=== PATIENT | female | born 1955 | race Caucasian/White ===

== ENCOUNTER 2019-01-19 17:39 | Emergency (ER) | payer BC ==
[2019-01-19] MEDS: ONDANSETRON (ODT) 4 MG TAB ODT (18:33)
[2019-01-19] MEDS: traMADol 50 MG TAB PO (18:33)
[2019-01-19] MEDS: DEXAMETHASONE 10 MG/ML 1 ML INJ IM (18:34)
== END 2019-01-19 20:01 | disposition left against medical advice (07) ==
LOC: FTE 17:39
DX: J01.11 Acute recurrent frontal sinusitis (principal); J30.9 Allergic rhinitis, unspecified
CPT/HCPCS: 96372; 99284-25